=== PATIENT | male | born 1955 | race Caucasian/White ===

== ENCOUNTER → 2017-04-06 | Day surgery (SDC) | payer MEDICARE ==
[~2017-04-06] MED LIST: ALLO100T PO; BUME2TAB PO; CALC500T21 PO; CLAR10TA7 PO; CORE12.5 PO; DOCU1CAP39 PO; EQL400TA PO; GABA300C3 PO; GAS-125C7 PO; LACT PO; LACTATED RINGER'S 1000 ML INJ 1,000 ML ONE; LANO0.2510 PO; LORTA5 PO; MAGN250T5 PO; METH2.5 PO; MS C60TA4 PO; OXYC1SOL5 PO; PANT20 PO; PERF25TA PO; POLY119S PO; PROPOFOL 100 MG/10 ML INJ IV ONE; REFR0.5D4 EACH EYE; SENN-29 PO; SKIN1CRE2 TOP; SPIR25 PO; TAB-TAB PO; TOPI0.255 TOP; VITA100020 PO
--- NOTE | 2017-04-06 16:26 | GIPROC ---
[facility] [address], [address] COLONOSCOPY PROCEDURE REPORT EXAM DATE: 04/06/2017 PATIENT NAME: Jamal Wheeler MR #: [id number] BIRTHDATE: 1955 ENDOSCOPIST: Richard Gong MD ORDER #: [id number] [employer] CONSULTANT: Klaudia Jackson RN STATUS: outpatient INDICATIONS: The patient is a 61 yr old male here for a colonoscopy due to high risk patient with personal history of colonic polyps PROCEDURE PERFORMED: Colonoscopy with polypectomy MEDICATIONS: None and Per Anesthesia. PREP QUALITY: fair ESTIMATED BLOOD LOSS: None CONSENT: The patient understands the risks and benefits of the procedure and understands that these risks include, but are not limited to: sedation, allergic reaction, infection, perforation and/or bleeding. Alternative means of evaluation and treatment include, among others: physical exam, x-rays, and/or surgical intervention. The patient elects to proceed with this endoscopic procedure. medical equipment was checked for proper function. Hand hygiene and appropriate measures for infection prevention was taken. After the risks, benefits and alternatives of the procedure were thoroughly explained, Informed consent was verified, confirmed and timeout was successfully executed by the treatment team. A digital exam revealed no abnormalities of the rectum The EC-3890Li ([id number]) endoscope was introduced through the anus and advanced to the cecum, which was identified by both the appendix and ileocecal valve. The instrument was then slowly withdrawn as the colon was fully examined. COLON FINDINGS: 1 cm polyp in ascending colonre moved by snare. Some stool throughout the colon. Retroflexed views revealed no abnormalities The scope was then completely withdrawn from the patient and the procedure terminated. ADVERSE EVENTS: There were no complications. IMPRESSIONS: 1. 1 cm polyp in ascending colonre moved by snare 2. Some stool throughout the colon 3. Retroflexed views revealed no abnormalities 4. Revealed no abnormalities of the rectum RECOMMENDATIONS: 1. Await biopsy results. Biopsy results will not be ready for 7-10 days. If you don't hear from us in two weeks, call our office for results. 2. Yearly hemoccult 3. High fiber diet RECALL: Return 2 years Colonoscopy Richard Gong MD eSigned: Richard Gong MD 04/06/2017 4:26 PM cc: Enoch Thompson M.D.
--- NOTE | 2017-04-06 16:32 | GIPROC ---
[facility] [address] [facility] [place], [address] EGD PROCEDURE REPORT EXAM DATE: 04/06/2017 PATIENT NAME: Jamal Wheeler MR #: [id number] BIRTHDATE: 1955 ATTENDING: Richard Gong MD ORDER #: [id number] CLINICAL INFORMATICS EDUCATOR: Klaudia Jackson RN STATUS: outpatient INDICATIONS: The patient is a 61 yr old male here for an EGD due to dysphagia PROCEDURE PERFORMED: EGD w/ biopsy EGD w/ dilation of esophagus via guidewire MEDICATIONS: None and Per Anesthesia. TOPICAL ANESTHETIC: none CONSENT: The patient understands the risks and benefits of the procedure and understands that these risks include, but are not limited to: sedation, allergic reaction, infection, perforation and/or bleeding. Alternative means of evaluation and treatment include, among others: physical exam, x-rays, and/or surgical intervention. The patient elects to proceed with this endoscopic procedure. medical equipment was checked for proper function. Hand hygiene and appropriate measures for infection prevention was taken. After the risks, benefits and alternatives of the procedure were thoroughly explained, Informed consent was verified, confirmed and timeout was successfully executed by the treatment team. The patient was anesthetized with topical anesthesia and the EC-3890Li ([id number]) endoscope was introduced through the mouth and advanced to the third portion of the duodenum. Retroflexed views revealed no abnormalities The gastroscope was then slowly withdrawn and removed. Anatom C/W gastric bypass. Irregular Z line Bx from EG junction. 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 The endoscopy was otherwise normal. ADVERSE EVENTS: There were no complications. IMPRESSIONS: 1. Anatom C/W gastric bypass 2. Irregular Z line Bx from EG junction 3. 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 Normal endoscopy otherwise 5. Retroflexed views revealed no abnormalities RECOMMENDATIONS: 1. Await biopsy results. Biopsy results will not be ready for 7-10 days. If you don't hear from us in two weeks, call our office for biopsy results. 2. Anti-reflux regimen 3. Soft diet, small meals chew food well 4. Avoid NSAIDS PATIENT CONDITION: stable DISPOSITION: Home REPEAT EXAM: Return as needed for EGD Richard Gong MD eSigned: Richard Gong MD 04/06/2017 4:31 PM cc: Enoch Thompson M.D. PATIENT NAME: Jamal Wheeler Denise MR#: [id number]
== END | disposition home or self-care (01) ==
LOC: ESDC 13:02
PROVIDERS: ATTEND Hospitalist
DX: Z12.11 Encounter for screening for malignant neoplasm of colon (principal); Z86.010 Personal history of colon polyps; D12.4 Benign neoplasm of descending colon; R13.10 Dysphagia, unspecified; K22.2 Esophageal obstruction
CPT/HCPCS: 00740; 00810; 43239; 43248; 45385; 88305; J3010; J7120